=== PATIENT | female | born 1970 | race Two or more races ===

== ENCOUNTER 2018-04-11 20:28 | Emergency (ER) | payer OTHER ==
--- NOTE | 2018-04-11 21:36 | EDM.PDOC ---
ED HPI GENERAL MEDICAL PROBLEM - General Chief Complaint: Upper Extremity Injury/Pain Stated Complaint: PT CUT FINGER Time Seen by Provider: 04/11/18 21:28 Source of Information: Reports: Patient, Family History Limitations: Reports: No Limitations - History of Present Illness INITIAL COMMENTS - FREE TEXT/NARRATIVE: HISTORY AND PHYSICAL: History of present illness: Patient is a 47-year-old female here with complaint of left hand injury. Daughter is translating her and states she cut her thumb at work on an onion slicer about 1 hour prior to arrival to the ED. She states that since then she has not been able to bend any of the fingers in her hand. There was no other injury other than a superficial cut to her thumb. Patient is UTD on her tetanus. Denies significant past medical history. Review of systems: As per history of present illness and below otherwise all systems reviewed and negative. Past medical history: As per history of present illness and as reviewed below otherwise noncontributory. Surgical history: As per history of present illness and as reviewed below otherwise noncontributory. Social history: No reported history of drug or alcohol abuse. Family history: As per history of present illness and as reviewed below otherwise noncontributory. Physical exam: General: Patient sitting comfortably in no acute distress and nontoxic appearing HEENT: Atraumatic, normocephalic, pupils reactive, negative for conjunctival pallor or scleral icterus, mucous membranes moist, throat clear, neck supple, nontender, trachea midline. No meningeal signs. Lungs: Clear to auscultation, breath sounds equal bilaterally, chest nontender. Heart: S1S2, regular, negative for clicks, rubs, or overt murmur. Abdomen: Soft, nondistended, nontender. Negative for masses or hepatosplenomegaly. Negative for costovertebral tenderness. Pelvis: Stable nontender. Genitourinary: Deferred. Rectal: Deferred. Extremities: Small superficial cut to the left ulnar aspect of the thumb. The 2nd-5th digits are extended straight, I am able to flex her fingers at each joint but patient unable to flex them on her own. Patient is able to flex at the wrist normally. negative for cords or calf pain. Neurovascular unremarkable. Neuro: Awake, alert, oriented. Cranial nerves II through XII unremarkable. Cerebellum unremarkable. Motor and sensory unremarkable throughout. Exam nonfocal. Notes: Diagnostics: x-ray hand Therapeutics: None Prescriptions: None Impression: Left thumb laceration, hand injury Plan: 1. Follow up with hand surgery, call the number provided tomorrow morning to schedule an appointment. 2. Return to ED as needed as discussed Definitive disposition and diagnosis as appropriate pending reevaluation and review of above. - Related Data Allergies Allergy/AdvReac Type Severity Reaction Status Date / Time No Known Allergies Allergy Verified 04/11/18 20:49 Home Meds: Home Meds . [No Known Home Meds] 04/11/18 [History] Past Medical History - Past Health History Medical/Surgical History: Denies Medical/Surgical History Social & Family History - Family History Family Medical History: Noncontributory - Tobacco Use Smoking Status *Q: Never Smoker Second Hand Smoke Exposure: No - Caffeine Use Caffeine Use: Reports: Coffee - Recreational Drug Use Recreational Drug Use: No Review of Systems - Review of Systems Review Of Systems: ROS reveals no pertinent complaints other than HPI. ED EXAM, GENERAL - Physical Exam Exam: See Below (see dictation) Course - Vital Signs Last Recorded V/S: Last Vital Signs Temp 97.6 F 04/11/18 20:50 Pulse 62 04/11/18 20:50 Resp 16 04/11/18 20:50 BP 128/62 04/11/18 20:50 Pulse Ox 99 04/11/18 20:50 - Orders/Labs/Meds Orders: Active Orders 24 hr Category Date Time Status Hand Comp Min 3V Lt [CR] Stat Exams 04/11/18 21:28 Ordered Departure - Departure Time of Disposition: 22:09 Disposition: Home, Self-Care 01 Condition: Good Clinical Impression: Laceration of left thumb, Injury of left hand - Discharge Information Referrals: PCP,None [Primary Care Provider] - Yamilka Akers MD [Physician] - 3 Days Forms: ED Department Discharge Additional Instructions: The following information is given to patients seen in the emergency department who are being discharged to home. This information is to outline your options for follow-up care. We provide all patients seen in our emergency department with a follow-up referral. The need for follow-up, as well as the timing and circumstances, are variable depending upon the specifics of your emergency department visit. If you don't have a primary care physician on staff, we will provide you with a referral. We always advise you to contact your personal physician following an emergency department visit to inform them of the circumstance of the visit and for follow-up with them and/or the need for any referrals to a consulting specialist. The emergency department will also refer you to a specialist when appropriate. This referral assures that you have the opportunity for follow-up care with a specialist. All of these measure are taken in an effort to provide you with optimal care, which includes your follow-up. Under all circumstances we always encourage you to contact your private physician who remains a resource for coordinating your care. When calling for follow-up care, please make the office aware that this follow-up is from your recent emergency room visit. If for any reason you are refused follow-up, please contact the [facility] Emergency Department at and asked to speak to the emergency department charge nurse. [facility] Specialty Care - Plastic Surgery Professional [address], [address] [place] [address] 1. Follow up with hand surgery, call the number provided tomorrow morning to schedule an appointment. 2. Return to ED as needed as discussed - My Orders Last 24 Hours: My Active Orders 04/11/18 21:28 Hand Comp Min 3V Lt [CR] Stat - Assessment/Plan Last 24 Hours: My Active Orders 04/11/18 21:28 Hand Comp Min 3V Lt [CR] Stat
--- NOTE | 2018-04-11 22:22 | CR ---
INDICATION: laceration to thumb, now whole hand locked up TECHNIQUE: Left hand 3 views. COMPARISON: None. FINDINGS: Bones: Alignment is normal. No fractures or bone lesions. Joint spaces: Unremarkable. Soft tissues: Unremarkable. IMPRESSION: Unremarkable left hand. Dictated by: Igor Middleton MD @ 04/11/2018 22:19:57 (Electronically Signed)
== END 2018-04-11 22:32 | disposition home or self-care (01) ==
LOC: MW.ED 20:28
DX: S61.012A Laceration without foreign body of left thumb without damage to nail, initial encounter (principal); W26.8XXA Contact with other sharp object(s), not elsewhere classified, initial encounter; Y99.0 Civilian activity done for income or pay
CPT/HCPCS: 73130-26-LT; 73130-LT; 99282; 99283

== ENCOUNTER 2021-08-06 20:51 | Emergency (ER) | payer OTHER ==
[2021-08-06] MEDS ORDERED: Ondansetron 4 MG/2 ML SDV IVPUSH ONE (21:56)
[2021-08-06] MEDS ORDERED: Morphine 4 MG/ML VIAL IVPUSH ONE (21:56)
[2021-08-06] MEDS ORDERED: Ondansetron 4 MG Tab.DIS PO ONE (22:05)
[2021-08-07] MEDS ORDERED: Ketorolac 30 MG/ML SDV IVPUSH ONE (00:20)
[2021-08-07] MEDS: Ondansetron 4 MG/2 ML SDV IVPUSH STA ×2 (00:42→00:44)
== END 2021-08-07 01:15 | disposition home or self-care (01) ==
LOC: MW.ED 20:51
DX: S39.012A Strain of muscle, fascia and tendon of lower back, initial encounter (principal); W01.198A Fall on same level from slipping, tripping and stumbling with subsequent striking against other object, initial encounter
CPT/HCPCS: 70450; 71045; 72125; 72128; 72131; 72170; 96374; 96375; 96376; 99284; J1885; J2270; J2405; 99285

== ENCOUNTER 2021-08-15 15:45 | Emergency (ER) | payer SELFPAY ==
[2021-08-15] MEDS ORDERED: Sodium Chloride 0.9% 1,000 ML IV ONE (17:02)
[2021-08-15 17:18] LABS: BLOOD UREA NITROGEN,BUN 12 mg/dL (7.0-18.0); CARBON DIOXIDE,CO2 26.3 mmol/L (21.0-32.0); CHLORIDE,CL 103 mmol/L (98-107); GLUCOSE RANDOM 109 mg/dL (74-106); POTASSIUM,K 4.5 mmol/L (3.5-5.1); SODIUM,NA 139 mmol/L (136-145)
[2021-08-15 17:22] LABS: ESTIMATED GFR 78 mL/min (>60)
[2021-08-15] MEDS ORDERED: Ketorolac 30 MG/ML SDV IM ONE (17:52)
[2021-08-15] MEDS ORDERED: Ketorolac 30 MG/ML SDV IVPUSH STA (18:20)
[2021-08-15 19:32] LABS: CORONAVIRUS COVID-19 NAA POSITIVE (NEGATIVE); INFLUENZA A NAA NEGATIVE (NEGATIVE); INFLUENZA B NAA NEGATIVE (NEGATIVE)
== END 2021-08-15 19:30 | disposition home or self-care (01) ==
LOC: MW.ED 15:45
DX: U07.1 COVID-19 (principal); R55 Syncope and collapse; M54.50 Low back pain, unspecified
CPT/HCPCS: 0240U; 36415; 71045; 71275; 80053; 81003; 84484; 84703; 85025; 85379; 93005; 96361; 96374; 99284; J1885; J7030